=== PATIENT | male | born 1950 | race Caucasian/White ===

== ENCOUNTER → 2016-11-08 | Outpatient (CLI) | payer MEDICARE ==
[~2016-11-08] VITALS: Ht 170.2 cm; Wt 74.8 kg
[~2016-11-08] MED LIST: GERITAB9 PO; IRON18TA2 PO; PROPOFOL 200 MG/20 ML VIAL As Ordered ONE
[2016-11-08] MEDS: NS 1,000 ML IV SCH ×2 (11:45→11:59)
--- NOTE | 2016-11-08 12:49 | ROOR ---
Patient Name: John Hendrix Procedure Date: 11/08/2016 12:31 PM Date of : 1950 Age: 66 Room: [facility] Gender: Male Note Status: Finalized Procedure: Colonoscopy to Cecum Indications: Screening for colorectal malignant neoplasm, Last colonoscopy: 1991 Providers: Henry Figueroa MD Referring MD: BERTO GIL MD Requesting Provider: Medicines: Monitored Anesthesia Care Complications: No immediate complications. Procedure: Pre-Anesthesia Assessment: - The heart rate, respiratory rate, oxygen saturations, blood pressure, adequacy of pulmonary ventilation, and response to care were monitored throughout the procedure. The Colonoscope was introduced through the anus and advanced to the cecum, identified by appendiceal orifice and ileocecal valve. The colonoscopy was performed without difficulty. The patient tolerated the procedure well. The quality of the bowel preparation was excellent. Findings: The perianal and digital rectal examinations were normal. Internal hemorrhoids were found during retroflexion. The hemorrhoids were small. Multiple small and large-mouthed diverticula were found in the recto-sigmoid colon, sigmoid colon and descending colon. The exam was otherwise without abnormality on direct and retroflexion views. Impression: - Internal hemorrhoids. - Diverticulosis in the recto-sigmoid colon, in the sigmoid colon and in the descending colon. - The examination was otherwise normal on direct and retroflexion views. - No specimens collected. - The exam was otherwise normal to the cecum. Recommendation: - Patient has a contact number available for emergencies. The signs and symptoms of potential delayed complications were discussed with the patient. Return to normal activities tomorrow. Written discharge instructions were provided to the patient. - High fiber diet. - Discharge patient to home. - Continue present medications. - Repeat colonoscopy in 10 years for screening purposes. - Return to referring physician. - The findings and recommendations were discussed with the patient's family. Henry Figueroa MD Henry Figueroa MD 11/08/2016 12:49:39 PM This report has been signed electronically. Number of Addenda: 0 Note Initiated On: 11/08/2016 12:31 PM Estimated Blood Loss: Estimated blood loss: none.
[2016-11-08 13:05] VITALS: BP 100/68
== END | disposition home or self-care (01) ==
LOC: M OPP 11:36
PROVIDERS: ATTEND Internal Medicine Gastroenterology
DX: Z12.11 Encounter for screening for malignant neoplasm of colon (principal); K57.30 Diverticulosis of large intestine without perforation or abscess without bleeding; K64.8 Other hemorrhoids; D64.9 Anemia, unspecified; N28.9 Disorder of kidney and ureter, unspecified; R06.83 Snoring; Z86.718 Personal history of other venous thrombosis and embolism; Z88.5 Allergy status to narcotic agent

== ENCOUNTER → 2021-07-14 | Outpatient (REF) | payer MEDICARE ==
[~2021-07-14] MED LIST changes: -PROPOFOL 200 MG/20 ML VIAL As Ordered ONE
[2021-07-14 14:27] LABS: PERCENT SATURATION 35.3 % (19.7-50.0)
== END ==
LOC: M LAB REF 13:12
PROVIDERS: ATTEND Internal Medicine Nephrology
DX: E61.1 Iron deficiency (principal)

== ENCOUNTER 2024-09-10 08:38 | Day surgery (SDC) | payer MEDICARE ==
[~2024-09-10] VITALS: Ht 167.6 cm; Wt 75.3 kg
[~2024-09-10 08:38] MED LIST changes: +ATOR40TA75 PO; +CARV12.5 PO; +IRON65TA2 PO; +LOSA50TA28 PO; +VITA-243 PO; +VITA100093 PO
[2024-09-10] MEDS ORDERED: ONDANSETRON 4MG 2ML VIAL As Ordered ONE (08:57)
[2024-09-10] MEDS ORDERED: ROCURONIUM BROMIDE 50MG/5ML VIAL As Ordered ONE (08:57)
[2024-09-10] MEDS ORDERED: LIDOCAINE 2% 100MG/5ML SDV (FOR ANES.) As Ordered ONE (08:57)
[2024-09-10] MEDS ORDERED: SUGAMMADEX SODIUM 500 MG/5 ML VIAL (BRIDION) As Ordered ONE (08:57)
[2024-09-10] MEDS ORDERED: propofoL 200 MG/20 ML VIAL As Ordered ONE (08:57)
[2024-09-10] MEDS ORDERED: ACETAMINOPHEN 1000MG/100ML IV BAG As Ordered ONE (08:58)
[2024-09-10] MEDS ORDERED: MIDAZOLAM INJ 2MG/2ML VIAL As Ordered ONE (08:58)
[2024-09-10] MEDS ORDERED: fentaNYL 100 MCG/2 ML INJECTION As Ordered ONE (08:58)
[2024-09-10] MEDS ORDERED: LR 1,000 ML IV SCH ×2 (09:35→11:55)
[2024-09-10] MEDS: ceFAZolin SOD 2 GM IV ONCE IV ONE (10:26)
[2024-09-10] MEDS ORDERED: hydrALAZINE 20MG/ML 1ML VIAL As Ordered ONE (10:53)
[2024-09-10] MEDS ORDERED: LABETALOL 100MG/20ML VIAL As Ordered ONE (11:07)
[2024-09-10] MEDS ORDERED: HYDROMORPHONE HCL 0.5 MG/ 0.5 ML SYRINGE IV PRN (11:55)
[2024-09-10] MEDS ORDERED: fentaNYL 100 MCG/2 ML INJECTION IV PRN (11:55)
[2024-09-10] MEDS ORDERED: ONDANSETRON 4MG 2ML VIAL IV PRN (11:55)
[2024-09-10 14:23] VITALS: BP 168/81; TEMP 97.6; O2SAT 96
== END 2024-09-10 14:27 | disposition home or self-care (01) ==
LOC: M SDC 08:38
PROVIDERS: ATTEND Surgery
DX: K40.90 Unilateral inguinal hernia, without obstruction or gangrene, not specified as recurrent (principal); I12.9 Hypertensive chronic kidney disease with stage 1 through stage 4 chronic kidney disease, or unspecified chronic kidney disease; N18.30 Chronic kidney disease, stage 3 unspecified; E78.00 Pure hypercholesterolemia, unspecified; K21.9 Gastro-esophageal reflux disease without esophagitis; Z86.718 Personal history of other venous thrombosis and embolism; Z79.899 Other long term (current) drug therapy; Z88.5 Allergy status to narcotic agent
CPT/HCPCS: 49650; C1781; J0131; J0360; J0665; J0690; J1100; J1920; J2250; J2405; J3010